=== PATIENT | female | born 1965 | race Caucasian/White ===

== ENCOUNTER 2016-12-04 12:55 | Outpatient (CLI) | payer OTHER ==
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
== END 2016-12-04 23:00 ==
LOC: MAM SRH 12:55
DX: N63 Unspecified lump in breast (principal); N60.01 Solitary cyst of right breast

== ENCOUNTER 2016-12-07 10:49 | Outpatient (CLI) | payer OTHER ==
--- NOTE | 2016-12-07 12:41 | DIAGNOSTIC IMAGING REPORT ---
PROCEDURE: MR LUMBAR SPINE W/O CONTRAST INDICATION: WORSENING RIGHT LEG AND PERIAREA PAIN TECHNIQUE: Noncontrast T1, T2, and STIR sagittal images. T1 and T2 axial images. COMPARISON: None. FINDINGS: At T12-L1 there is a focal herniated disc on the left just to the left of midline. The herniated disc measures approximately 9 mm in width. There is also narrowing of the disc space. L1-2: Normal. L2-3: Normal. L3-4: Normal. L4-5: Normal. L5-S1: Normal. IMPRESSION: 1. Focal herniated nucleus pulposus T12-L1 just to the left of midline.
== END 2016-12-07 23:00 ==
LOC: MRI SRH 10:49
DX: M51.25 Other intervertebral disc displacement, thoracolumbar region (principal)